=== PATIENT | male | born 1975 | race Caucasian/White ===

== ENCOUNTER 2024-08-16 11:07 | Emergency (ER) | payer MEDICAID ==
[2024-08-16] MEDS ORDERED: Lactated Ringers 1,000 ML IV ONE (11:13)
[2024-08-16] MEDS ORDERED: Sodium Chloride 0.9% 10 ML Syringe FLUSH PRN (11:13)
[2024-08-16] MEDS: Lidocaine 1% with EPINEPHrine 1:100,000 20 ML MDV INFILT STA (11:22)
[2024-08-16] MEDS: Diphtheria,Pertussis(Acell),Tetanus Vaccine 0.5 ML Syringe IM ONE (12:00)
== END 2024-08-16 12:10 | disposition home or self-care (01) ==
LOC: VM.ED 11:07
DX: S51.812A Laceration without foreign body of left forearm, initial encounter (principal); F17.210 Nicotine dependence, cigarettes, uncomplicated; Z23 Encounter for immunization; W26.0XXA Contact with knife, initial encounter; Y93.89 Activity, other specified
CPT/HCPCS: 12002; 90471; 90715; 99282-25; 99283; J2004